=== PATIENT | female | born 2000 | race African-American/Black ===

== ENCOUNTER → 2022-03-03 14:31 | Outpatient (CLI) | payer OTHER, SELFPAY ==
--- NOTE | 2022-03-03 14:32 | DI.US.S_ITS ---
PROCEDURE: US OB >= 14 WEEKS FETUS INDICATIONS: ANATOMY OUTSIDE/PRIOR DATING DATA: Last menstrual period (LMP): 10/15/2021 LMP-based estimated date of delivery (MARIELOS): 07/22/2022 First dating scan (date and location): 03/03/2022 Estimated date of delivery (MARIELOS) from first dating scan: 08/01/2022 TECHNIQUE: Real-time scanning was performed of the fetus, with image documentation and biometric measurements. Endovaginal scanning: Not performed. COMPARISON: None. FINDINGS: General: A single living intrauterine gestation is present. Presentation: Vertex Placenta: Placental position is anterior, without previa. Amniotic fluid index: 15.8 cm, normal range is 5-24 cm. Single deepest vertical pocket is 4.7 cm. heart rate: 157 beats per minute. Maternal cervical canal: 4.5 cm long. Normal lower limit is 2.5 cm. biometrics: Biparietal diameter: 4.3 cm, 19 weeks 1 day Head circumference: 15.3 cm, 18 weeks 2 days Abdominal circumference: 12.4 cm, 18 weeks 0 days Femur length: 2.6 cm, 18 weeks 0 days Clinically estimated gestational age: 19 weeks 6 days by LMP Composite gestational age from present scan: 18 weeks 3 days Estimated weight and percentile: 221 grams, 1st percentile for gestational age based on clinical dates Anatomic survey: Neuro: Ventricles are non-dilated at less than 10 mm. Cisterna magna is normal at 3-11 mm. Cerebellum is normal in size and morphology. Nuchal skin fold: Normal at less than 6 mm between 14-21 weeks gestational age. Face: Nose and lips, facial profile are not well seen due to position. Spine: No evidence for spina bifida. Heart: 4-chambered heart is present, with normal left ventricular outflow tract. Right ventricular outflow tract is not well visualized. Diaphragm: Diaphragm is intact. Stomach: Left-sided stomach is present. Kidneys: No hydronephrosis. Normal is less than 5 mm in 2nd trimester, less than 7 mm in 3rd trimester. Cord: 3-vessel cord has orthotopic insertion. Bladder: Normal in size. Extremities: All 4 extremities identified. IMPRESSION: 1. Single live intrauterine . Estimated gestational age is 18 weeks 3 days on the current exam, giving an ultrasound MARIELOS of 08/01/2022. 2. Estimated weight is 221 grams, which is at the 1st percentile for gestational age. Findings are likely related to a discrepancy between dates by last menstrual period and ultrasound dating. 3. nose and lips not well visualized. Right ventricular outflow tract is also suboptimally visualized. Recommend follow-up exam. 4. Otherwise, anatomic survey is within normal limits We strive to produce accurate, complete, and clear reports of imaging services. To assist us in improving patient care, this report was composed using standard report templates and voice recognition software. Therefore, it may contain abnormal punctuation, insertions and/or omissions. Occasional wrong-word or sound-alike substitutions may occur. Though we review the report and make efforts to correct it, we do recommend that the report be read carefully in proper context to recognize any text inaccuracies. Dictated by: Gabriele Lo M.D. on 03/03/2022 at 20:15 Approved by: Gabriele Lo M.D. on 03/03/2022 at 20:25
== END ==
PROVIDERS: PCP Student in an Organized Health Care Education/Training Program; Referring Provider Obstetrics & Gynecology; Visit Provider Obstetrics & Gynecology
DX: Z34.02 Encounter for supervision of normal first pregnancy, second trimester (principal); Z3A.18 18 weeks gestation of pregnancy
CPT/HCPCS: 76811

== ENCOUNTER → 2022-03-11 15:34 | Outpatient (CLI) | payer OTHER, SELFPAY ==
[2022-03-11 16:03] LABS: Add Manual Diff / Slide Review NO; Basophils Absolute Auto 0 /uL (0-100); Basophils Percent Auto 0.7 % (0-2); Eosinophils Absolute Auto 0 /uL (0-450); Eosinophils Percent Auto 0.7 % (2-4); Hematocrit 31.7 % (36-46); Hemoglobin 10.7 g/dL (12.0-16.0); Lymphocytes Absolute Auto 1900 /uL (1100-4500); Lymphocytes Percent Auto 28.1 % (25-40); Mean Corpuscular HGB Conc 33.7 % (30-36); Mean Corpuscular Hemoglobin 28.9 PG (26-34); Mean Corpuscular Volume 85.7 fL (80-100); Monocytes Absolute Auto 600 /uL (0-900); Monocytes Percent Auto 8.8 % (3-14); Neutrophils Absolute Auto 4200 /uL (1500-7000); Neutrophils Percent Auto 61.7 % (50-75); Platelet Count 136 X10^3/uL (150-400); Red Cell Distribution Width 14.1 % (11.6-14.8); White Blood Cell Count 6.8 X10^3/uL (4.5-11.0)
[2022-03-11 18:02] LABS: Appearance Urine UA CLEAR; Bilirubin Urine UA NEGATIVE (NEGATIVE); Color Urine UA YELLOW; Glucose Urine UA NEGATIVE (Negative); Ketones Urine UA NEGATIVE (NEGATIVE); Leukocyte Esterase Urine UA NEGATIVE (NEGATIVE); Nitrite Urine UA NEGATIVE (Negative); Occult Blood Urine UA NEGATIVE (Negative); Protein Urine UA TRACE (Negative); Urobilinogen Urine UA 0.2 E.U./dL (0.2)
[2022-03-12 07:10] LABS: Varicella IgG Antibody 1218 index (Immune >165)
[2022-03-13 16:35] LABS: HIV 1 & 2 Ab/Ag 4th Gen Combo NEGATIVE (NEGATIVE); Hep C Virus Ab w/Reflex Quant NEGATIVE s/c (NEGATIVE); Hepatitis B Surface Antigen NEGATIVE s/c (NEGATIVE); Rubella Antibody IgG 71.4 IU/mL (>15)
[2022-03-14 20:28] LABS: AFP, Serum 60.3 ng/mL (.); Estriol, Free 2.34 ng/mL (.); Inhibin A, Dimeric 97.22 pg/mL (.); Inhibin A, MoM 0.54 (.); Maternal Ethnicity Black (.); Maternal Weight 160 lbs (.); Number of Fetuses No (.); OSBR Risk 1 IN 10000 (.); Results Report (.); Test Results *Screen Negative* (.); hCG, MoM 0.46 (.); hCG, Serum 11298 mIU/mL (.)
[2022-05-07 12:33] LABS: RPR Screen Reactive
== END ==
PROVIDERS: PCP Student in an Organized Health Care Education/Training Program; Referring Provider Obstetrics & Gynecology; Visit Provider Obstetrics & Gynecology
DX: Z34.02 Encounter for supervision of normal first pregnancy, second trimester (principal); Z3A.19 19 weeks gestation of pregnancy
CPT/HCPCS: 36415; 80055; 81003; 82105; 82677; 84702; 86336; 86787; 86803; 86850; 86900; 86901; 87086; 87389

== ENCOUNTER → 2022-04-10 09:50 | Outpatient (CLI) | payer OTHER, SELFPAY ==
--- NOTE | 2022-04-10 09:50 | DI.US.S_ITS ---
PROCEDURE: US OB FOLLOW UP INDICATIONS: Incomplete anatomy scan 03/03/2022 OUTSIDE/PRIOR DATING DATA: Last menstrual period (LMP): 10/15/2021. LMP-based estimated date of delivery (MARIELOS): 08/01/2022 First dating scan (date and location): 03/03/2022 Estimated date of delivery (MARIELOS) from first dating scan: 08/01/2022 TECHNIQUE: Real-time scanning was performed of the fetus, with image documentation and biometric measurements. Endovaginal scanning: None COMPARISON: None. FINDINGS: General: A single living intrauterine gestation is present. Presentation: Cephalic. Placenta: Placental position is anterior , without previa. Lower placental edge 2 cm or less from internal cervical os qualifies as low lying placenta. Amniotic fluid index: 11.9 cm, normal range is 5-24 cm. Single deepest vertical pocket is 3.6 cm. heart rate: 149 beats per minute. Maternal cervical canal: Nonvisualized biometrics: Biparietal diameter: 5.9 cm, 24 weeks 1 day Head circumference: 22 cm, 24 weeks 0 day Abdominal circumference: 17.4 cm, 22 weeks 3 days Femur length: 4.26 cm, 23 week 6 day Clinically estimated gestational age: 23 week 6 day Composite gestational age from present scan: 23 week 4 day Estimated weight and percentile: 572 g, 16th percentile Umbilical artery S/D ratio: 3.84 Anatomic survey: Right ventricular outflow tract, stomach, abdomen, both kidneys and urinary bladder have an unremarkable appearance. Facial profile within normal limits. However, the entire nose was not able to be visualized due to positioning. IMPRESSION: Single live intrauterine corresponds with a 23 week 4 day gestation by current ultrasound. Facial midline profile and ventricular outflow tracts within normal limits, however, the entire nose was not visualized due to positioning. Approved by: Pato Waller M.D. on 04/10/2022 at 12:12
== END ==
PROVIDERS: PCP Student in an Organized Health Care Education/Training Program; Referring Provider Obstetrics & Gynecology; Visit Provider Obstetrics & Gynecology
DX: Z36.2 Encounter for other antenatal screening follow-up (principal); Z3A.23 23 weeks gestation of pregnancy
CPT/HCPCS: 76816; 76820

== ENCOUNTER → 2022-04-25 14:00 | Outpatient (CLI) | payer OTHER, SELFPAY ==
[2022-04-25 15:45] LABS: Hematocrit 31.3 % (36-46); Hemoglobin 10.4 g/dL (12.0-16.0)
[2022-04-25 15:59] LABS: GTT (PREG) 1 Hour PP 50gm Dose 90 mg/dL (76-139)
== END ==
PROVIDERS: PCP Student in an Organized Health Care Education/Training Program; Referring Provider Obstetrics & Gynecology; Visit Provider Obstetrics & Gynecology
DX: Z34.02 Encounter for supervision of normal first pregnancy, second trimester (principal); Z3A.26 26 weeks gestation of pregnancy
CPT/HCPCS: 36415; 82950; 85014; 85018

== ENCOUNTER → 2022-05-06 09:18 | Outpatient (CLI) | payer OTHER, SELFPAY ==
[2022-05-06 14:53] LABS: Urine N gonorrhoeae NOT DETECTED
[2022-05-06 15:06] LABS: Urine Chlamydia NOT DETECTED
== END ==
PROVIDERS: PCP Student in an Organized Health Care Education/Training Program; Visit Provider Obstetrics & Gynecology
DX: Z34.02 Encounter for supervision of normal first pregnancy, second trimester (principal); Z3A.27 27 weeks gestation of pregnancy
CPT/HCPCS: 87491; 87591

== ENCOUNTER → 2022-06-24 10:31 | Outpatient (CLI) | payer OTHER, SELFPAY | PROVIDERS: PCP Student in an Organized Health Care Education/Training Program; Referring Provider Obstetrics & Gynecology; Visit Provider Obstetrics & Gynecology | DX: O98.119 Syphilis complicating pregnancy, unspecified trimester (principal) | CPT/HCPCS: 36415; 86592 ==

== ENCOUNTER → 2022-07-01 13:22 | Outpatient (CLI) | payer OTHER, SELFPAY ==
--- NOTE | 2022-07-01 13:24 | DI.US.S_ITS ---
PROCEDURE: US OB LIMITED INDICATIONS: Incomplete 20 week anatomy scan OUTSIDE/PRIOR DATING DATA: Last menstrual period (LMP): 10/15/2021. LMP-based estimated date of delivery (MARIELOS): 07/22/2022. First dating scan (date and location): 02/21/2022. Estimated date of delivery (MARIELOS) from first dating scan: 08/01/2022. TECHNIQUE: Real-time scanning was performed of the fetus, with image documentation and biometric measurements. Endovaginal scanning: Not performed. COMPARISON: [facility], OB FOLLOW UP, 04/10/2022, 10:14. [facility], OB >= 14 WEEKS FETUS, 05/28/2022, 16:14. FINDINGS: General: A single living intrauterine gestation is present. Presentation: Vertex. Placenta: Placental position is anterior , without previa. Amniotic fluid index: 6.6 cm, normal range is 5-24 cm. Single deepest vertical pocket is 2.6 cm. heart rate: 155 beats per minute. Maternal cervical canal: Not well visualized. biometrics: Biparietal diameter: 8.9 centimeters, 36 weeks 0 days Head circumference: 31.7 centimeters, 35 weeks 4 days Abdominal circumference: 30.7 centimeters, 34 weeks 4 days Femur length: 6.6 centimeters, 34 weeks 1 day estimated gestational age: 35 weeks 4 days Composite gestational age from present scan: 35 weeks 1 day Estimated weight and percentile: 2503 grams, 27th percentile Average umbilical artery S/D ratio: 2.6, normal for gestational age. Other: nose/lips, face, profile, not seen secondary to age/lie. IMPRESSION: 1. Single living intrauterine . Normal interval growth. 2. nose/lips, face, profile were not seen secondary to age/lie. We strive to produce accurate, complete, and clear reports of imaging services. To assist us in improving patient care, this report was composed using standard report templates and voice recognition software. Therefore, it may contain abnormal punctuation, insertions and/or omissions. Occasional wrong-word or sound-alike substitutions may occur. Though we review the report and make efforts to correct it, we do recommend that the report be read carefully in proper context to recognize any text inaccuracies. Dictated by: Gabriele Weems M.D. on 07/01/2022 at 19:31 Approved by: Gabriele Weems M.D. on 07/01/2022 at 19:45
== END ==
PROVIDERS: PCP Physician Assistant; Referring Provider Obstetrics & Gynecology; Visit Provider Obstetrics & Gynecology
DX: Z3A.35 35 weeks gestation of pregnancy; O98.113 Syphilis complicating pregnancy, third trimester
CPT/HCPCS: 76815; 76820

== ENCOUNTER → 2022-07-08 09:44 | Outpatient (CLI) | payer OTHER, SELFPAY ==
[2022-07-09 16:09] LABS: Strep Grp B PCR NEG for Grp B Strep
== END ==
PROVIDERS: PCP Physician Assistant; Visit Provider Obstetrics & Gynecology
DX: Z34.03 Encounter for supervision of normal first pregnancy, third trimester (principal); Z3A.36 36 weeks gestation of pregnancy
CPT/HCPCS: 87653

== ENCOUNTER → 2022-07-08 10:41 | Outpatient (CLI) | payer OTHER, SELFPAY | PROVIDERS: PCP Physician Assistant; Referring Provider Obstetrics & Gynecology; Visit Provider Obstetrics & Gynecology | DX: Z34.03 Encounter for supervision of normal first pregnancy, third trimester (principal); Z3A.36 36 weeks gestation of pregnancy | CPT/HCPCS: 36415; 86592; 87653 ==

== ENCOUNTER → 2022-09-03 17:07 | Outpatient (CLI) | payer OTHER, SELFPAY | PROVIDERS: Referring Provider Obstetrics & Gynecology; Visit Provider Obstetrics & Gynecology | DX: A53.9 Syphilis, unspecified (principal) | CPT/HCPCS: 36415; 86592 ==

== ENCOUNTER → 2022-11-17 11:22 | Outpatient (CLI) | payer OTHER, SELFPAY ==
[2022-12-02 13:45] LABS: RPR Screen REACTIVE
== END ==
PROVIDERS: Referring Provider Obstetrics & Gynecology; Visit Provider Obstetrics & Gynecology
DX: A53.9 Syphilis, unspecified (principal)
CPT/HCPCS: 36415; 86592

== ENCOUNTER → 2024-07-05 07:10 | Outpatient (CLI) | payer OTHER, MEDICAID, SELFPAY ==
--- NOTE | 2024-07-05 07:12 | DI.US.S_ITS ---
PROCEDURE: US OB <= 14 WEEKS FETUS INDICATIONS: dating and viability OUTSIDE/PRIOR DATING DATA: Last menstrual period (LMP): 05/06/2024. LMP-based estimated date of delivery (MARIELOS): 02/18/2025. First dating scan (date and location): 07/05/2024. Estimated date of delivery (MARIELOS) from first dating scan: 02/19/2025. TECHNIQUE: Real-time scanning was performed of the fetus and maternal pelvic organs, with image documentation. Endovaginal scanning was also performed to better visualize the fetus and maternal ovaries. COMPARISON: None. FINDINGS: Yolk sac is present. pole measures 1.1 cm. heart motion at a rate of 133 beats per minute. Ultrasound age is 7 weeks and 2 days. Probable right corpus luteum cyst. IMPRESSION: Living intrauterine gestation at an ultrasound age of 7 weeks and 2 days, consistent with the reported LMP. Dictated by: Lonnie Morales M.D. on 07/05/2024 at 10:14 Approved by: Lonnie Morales M.D. on 07/05/2024 at 10:15
== END ==
PROVIDERS: Referring Provider Family Medicine; Visit Provider Family Medicine
DX: Z34.81 Encounter for supervision of other normal pregnancy, first trimester (principal); Z3A.01 Less than 8 weeks gestation of pregnancy
CPT/HCPCS: 76801; 76817

== ENCOUNTER → 2024-07-25 14:02 | Outpatient (CLI) | payer OTHER, MEDICAID, SELFPAY ==
[2024-07-25 14:40] LABS: Appearance Urine UA CLEAR; Bilirubin Urine UA NEGATIVE (NEGATIVE); Color Urine UA YELLOW; Glucose Urine UA NEGATIVE (Negative); Ketones Urine UA NEGATIVE (NEGATIVE); Leukocyte Esterase Urine UA NEGATIVE (NEGATIVE); Nitrite Urine UA NEGATIVE (Negative); Occult Blood Urine UA NEGATIVE (Negative); Protein Urine UA NEGATIVE (Negative); Specific Gravity Urine UA 1.025 (1.000-1.035)
[2024-07-25 14:43] LABS: pH Urine UA 6.5 (4.5-8.0)
== END ==
PROVIDERS: Visit Provider Family Medicine
DX: Z34.80 Encounter for supervision of other normal pregnancy, unspecified trimester (principal)
CPT/HCPCS: 81003

== ENCOUNTER → 2024-08-11 13:13 | Outpatient (CLI) | payer OTHER, SELFPAY ==
[2024-08-11 13:57] LABS: Add Manual Diff / Slide Review NO; Basophils Absolute Auto 0 /uL (0-100); Basophils Percent Auto 0.2 % (0-2); Eosinophils Absolute Auto 100 /uL (0-450); Eosinophils Percent Auto 1.1 % (2-4); Hematocrit 35.8 % (36-46); Hemoglobin 11.9 g/dL (12.0-16.0); Lymphocytes Absolute Auto 2200 /uL (1100-4500); Lymphocytes Percent Auto 41.1 % (25-40); Mean Corpuscular HGB Conc 33.3 % (30-36); Mean Corpuscular Hemoglobin 28.4 PG (26-34); Mean Corpuscular Volume 85.2 fL (80-100); Monocytes Absolute Auto 300 /uL (0-900); Monocytes Percent Auto 5.7 % (3-14); Neutrophils Absolute Auto 2800 /uL (1500-7000); Neutrophils Percent Auto 51.9 % (50-75); Platelet Count 154 X10^3/uL (150-400); Red Cell Distribution Width 14.3 % (11.6-14.8); White Blood Cell Count 5.5 X10^3/uL (4.5-11.0)
[2024-08-11 14:05] LABS: Alanine Aminotransferase 19 IU/L (<35); Albumin Globulin Ratio 1.4 (1.0-2.8); Alkaline Phosphatase 44 U/L (38-126); Aspartate Aminotransferase 25 IU/L (14-36); BUN Creatinine Ratio 10.9 (6-22); Bilirubin Total 0.3 mg/dL (0.2-1.3); Blood Urea Nitrogen 7 mg/dL (7-17); Calcium 9.6 mg/dL (8.4-10.2); Carbon Dioxide 24 mmol/L (22-32); Chloride 105 mmol/L (98-107); Estimated Glomerular Filt Rate > 60 mL/min (>60); Globulin 2.8 g/dL (1.7-4.1); Glucose 92 mg/dL (70-100); HEMOLYSIS < 15 (0-50); Potassium 3.7 mmol/L (3.4-5.1); Sodium 136 mmol/L (137-145); Total Protein 6.8 g/dL (6.3-8.2)
[2024-08-11 14:35] LABS: Creatinine Urine Random 342.74 mg/dL; Protein (Total) Urine Random 8 mg/dL (0-12); Protein Creatinine Ratio Urine 0.02 GRAM/24H
[2024-08-11 15:38] LABS: HIV 1 & 2 Ab/Ag 4th Gen Combo NEGATIVE (NEGATIVE); Hep C Virus Ab w/Reflex Quant NEGATIVE s/c (NEGATIVE); Hepatitis B Surface Antigen NEGATIVE s/c (NEGATIVE)
== END ==
LOC: LAB 13:14
PROVIDERS: Referring Provider Family Medicine; Visit Provider Family Medicine
DX: Z34.81 Encounter for supervision of other normal pregnancy, first trimester (principal); Z13.79 Encounter for other screening for genetic and chromosomal anomalies; G43.109 Migraine with aura, not intractable, without status migrainosus; Z86.19 Personal history of other infectious and parasitic diseases; Z3A.12 12 weeks gestation of pregnancy
CPT/HCPCS: 36415; 80053; 80055; 82570; 84156; 86787; 86803; 86850; 86900; 86901; 87086; 87389

== ENCOUNTER → 2024-09-19 12:45 | Outpatient (CLI) | payer OTHER, SELFPAY ==
--- NOTE | 2024-09-19 12:46 | DI.US.S_ITS ---
PROCEDURE: US OB >= 14 WEEKS FETUS INDICATIONS: anatomy US OUTSIDE/PRIOR DATING DATA: Last menstrual period (LMP): 05/14/2024 LMP-based estimated date of delivery (MARIELOS): 02/18/2025 First dating scan (date and location): 07/05/2024 Estimated date of delivery (MARIELOS) from first dating scan: 02/19/2025 The calculations are made using the working MARIELOS of 02/18/2025. TECHNIQUE: Real-time scanning was performed of the fetus, with image documentation and biometric measurements. Endovaginal scanning: Not performed COMPARISON: [facility], , OB >= 14 WEEKS FETUS, 05/28/2022, 16:14. FINDINGS: General: A single living intrauterine gestation is present. Presentation: Vertex Placenta: Placental position is posterior, without previa. Amniotic fluid index: 13.4 cm, normal range is 5-24 cm. Single deepest vertical pocket is 4.3 cm. heart rate: 147 beats per minute. Maternal cervical canal: 3.9 cm long. Normal lower limit is 2.5 cm. biometrics: Biparietal diameter: 4.3 cm, 19 weeks, 0 day. Head circumference: 15.2 cm, 18 weeks, 2 days. Abdominal circumference: 12.9 cm, 18 weeks, 3 days. Femur length: 2.7 cm, 18 weeks, 0 day. Clinically estimated gestational age: 18 weeks, 2 days. Composite gestational age from present scan: 18 weeks, 3 days. Estimated weight and percentile: 233 g, 46%. Anatomic survey: Neuro: Ventricles are non-dilated at less than 10 mm. Cisterna magna is normal at 3-11 mm. Cerebellum is normal in size and morphology. Nuchal skin fold: Normal at less than 6 mm between 14-21 weeks gestational age. Face: Nose and lips, facial profile are normal. Spine: No evidence for spina bifida. Heart: 4-chambered heart and ventricular outflow tracts are not well seen Diaphragm: Diaphragm is intact. Stomach: Left-sided stomach is present. Kidneys: No hydronephrosis. Normal is less than 5 mm in 2nd trimester, less than 7 mm in 3rd trimester. Cord: 3-vessel cord has orthotopic insertion. Bladder: Normal in size. Extremities: All 4 extremities identified. IMPRESSION: 1. Single live intrauterine gestation with fetus in vertex presentation. heart rate is 147 beats per minute. Normal YUMIKO at 13.4 cm. Normal growth. Estimated weight is at 46%. 2. Four-chamber heart and ventricular outflow tracts are not well seen on this study due to position. Rest of the anatomic survey is normal. We strive to produce accurate, complete, and clear reports of imaging services. To assist us in improving patient care, this report was composed using standard report templates and voice recognition software. Therefore, it may contain abnormal punctuation, insertions and/or omissions. Occasional wrong-word or sound-alike substitutions may occur. Though we review the report and make efforts to correct it, we do recommend that the report be read carefully in proper context to recognize any text inaccuracies. Dictated by: Junaid Peoples M.D. on 09/19/2024 at 15:37 Approved by: Junaid Peoples M.D. on 09/19/2024 at 15:39
== END ==
LOC: US 12:46
PROVIDERS: Referring Provider Family Medicine; Visit Provider Family Medicine
DX: Z34.82 Encounter for supervision of other normal pregnancy, second trimester (principal); Z3A.18 18 weeks gestation of pregnancy
CPT/HCPCS: 76811

== ENCOUNTER → 2024-10-11 15:31 | Outpatient (CLI) | payer OTHER, SELFPAY ==
--- NOTE | 2024-10-11 15:32 | DI.US.S_ITS ---
PROCEDURE: US OB LIMITED INDICATIONS: INCOMPLETE VISUALIZATON OF HEART OUTSIDE/PRIOR DATING DATA: Last menstrual period (LMP): 05/14/24. LMP-based estimated date of delivery (MARIELOS): 02/18/25. First dating scan (date and location): 07/05/24. Estimated date of delivery (MARIELOS) from first dating scan: 02/19/25. The calculations are made using the working MARIELOS of 02/18/25. TECHNIQUE: Real-time scanning was performed of the fetus, with image documentation. Endovaginal scanning: No COMPARISON: [facility], OB LIMITED, 07/01/2022, 13:39. FINDINGS: A single living intrauterine gestation is present. Presentation: Vertex. Placenta: Placental position is posterior, without previa. Amniotic fluid index: 21.3 cm, normal range is 5-24 cm. Single deepest vertical pocket is 9.4 cm. heart rate: 145 beats per minute. Maternal cervical canal: Closed and 3.5 cm long. Normal lower limit is 2.5 cm. Clinically estimated gestational age: 21 weeks three days There is completion of the anatomic survey with visualization of normal structures including four chambered heart and ventricular outflow tracts. Incidental note of an echogenic left ventricular focus. IMPRESSION: Completion of the anatomic survey with visualization of four chambered heart and cardiac outflow tracts. In the absence of other anomalies, left ventricular echogenic intracardiac focus is likely of no clinical significance. Closed cervix and normal amniotic fluid volume. Dictated by: Shraddha Yun M.D. on 10/13/2024 at 9:20 Approved by: Shraddha Yun M.D. on 10/13/2024 at 9:25
== END ==
PROVIDERS: Referring Provider Family Medicine; Visit Provider Family Medicine
DX: Z36.2 Encounter for other antenatal screening follow-up (principal); Z3A.21 21 weeks gestation of pregnancy
CPT/HCPCS: 76815